=== PATIENT | female | born 1935 | race African-American/Black ===

== ENCOUNTER 2019-04-22 19:13 | Emergency (ER) | payer MEDICARE, OTHER ==
[~2019-04-22] VITALS: Ht 149.9 cm; Wt 81.6 kg
[2019-04-22] MEDS ORDERED: cloNIDine HCL 0.1 MG TAB ONE (20:43)
[2019-04-22] MEDS ORDERED: cloNIDine HCL 0.1 MG TAB PO ONE (20:45)
[2019-04-23 01:36] LABS: Basophils # (auto) 0 uL; Basophils % (auto) 0.4 % (0.0-2.0); Eosinophils # (auto) 0.2 uL; Eosinophils % (auto) 2.3 % (0.0-7.0); Hematocrit 33.3 % (36.0-46.0); Hemoglobin 10.8 g/dL (12.2-16.2); Lymphocytes # (auto) 1.6 uL; Lymphocytes % (auto) 21.1 % (10.0-50.0); Mean Corpuscular Hemoglobin 29.1 pg (28.0-32.0); Mean Corpuscular Hgb Conc. 32.5 g/dL (32.0-36.0); Mean Corpuscular Volume 89.7 fL (80.0-100.0); Monocytes # (auto) 0.7 uL; Monocytes % (auto) 9.1 % (0.0-12.0); Neutrophils # (auto) 4.9 uL; Neutrophils % (auto) 67.1 % (37.0-80.0); Nucleated Red Blood Cells % 0.1 %; Platelet Count (auto) 184 10^3/uL (140-450); Red Blood Cells 3.72 10^6/uL (4.0-5.20); Red Cell Distribution Width 14.4 % (11.8-14.3); White Blood Cell 7.3 10^3/uL (4.4-10.8)
[2019-04-23 01:42] LABS: Urine Bacteria FEW /hpf (None Seen); Urine Blood Negative /uL (Negative); Urine Hyaline Cast FEW /lpf (0 - 2); Urine Mucus FEW (None Seen); Urine Specific Gravity 1.019 (1.001-1.035); Urine WBC 3 /hpf (0 - 5)
[2019-04-23] MEDS ORDERED: ONDANSETRON HCL 4 MG/2 ML VIAL IV ONE (01:45)
[2019-04-23] MEDS ORDERED: MORPHINE SULF INJ 2 MG/ML SYRINGE 1ML IV ONE (01:45)
[2019-04-23 01:52] LABS: INR 0.99 (0.9-1.15); Partial Thromboplastin Time 25.5 sec (23.64-32.05)
[2019-04-23 02:02] LABS: Albumin 3.1 g/dL (3.4-5.0); Calcium 9.3 mg/dL (8.5-10.1)
[2019-04-23 02:04] LABS: BUN/Creatinine Ratio 18.2
[2019-04-23 02:07] LABS: Bilirubin, Total 0.2 mg/dL (0.2-1.0); Total Protein 7.5 g/dL (6.4-8.2)
[2019-04-23 03:58] VITALS: BP 164/61
== END 2019-04-23 03:53 | disposition short-term general hospital (02) ==
LOC: ER 19:16 → EDBD 19:16 → ER 04-23 03:53
DX: S12.000A Unspecified displaced fracture of first cervical vertebra, initial encounter for closed fracture (principal); M48.02 Spinal stenosis, cervical region; E11.9 Type 2 diabetes mellitus without complications; I10 Essential (primary) hypertension; W19.XXXA Unspecified fall, initial encounter; Y93.01 Activity, walking, marching and hiking; Y92.89 Other specified places as the place of occurrence of the external cause; Y99.8 Other external cause status
CPT/HCPCS: 36415; 70450; 72125; 80053; 81001; 82962; 85025; 85610; 85730

== ENCOUNTER 2019-05-23 10:25 | Emergency (ER) | payer MEDICARE ==
[~2019-05-23] VITALS: Ht 152.4 cm; Wt 77.1 kg
[2019-05-23] MEDS ORDERED: cloNIDine HCL 0.1 MG TAB ONE (10:50)
[2019-05-23] MEDS ORDERED: cloNIDine HCL 0.1 MG TAB PO ONE ×2 (11:00)
[2019-05-23 11:45] LABS: Basophils # (auto) 0 uL; Basophils % (auto) 0.8 % (0.0-2.0); Eosinophils # (auto) 0.2 uL; Eosinophils % (auto) 3.6 % (0.0-7.0); Hemoglobin 11.7 g/dL (12.2-16.2); Lymphocytes # (auto) 1.2 uL; Lymphocytes % (auto) 23.6 % (10.0-50.0); Mean Corpuscular Hemoglobin 29.4 pg (28.0-32.0); Mean Corpuscular Hgb Conc. 32.6 g/dL (32.0-36.0); Mean Corpuscular Volume 90.1 fL (80.0-100.0); Monocytes # (auto) 0.4 uL; Monocytes % (auto) 7.8 % (0.0-12.0); Neutrophils # (auto) 3.2 uL; Neutrophils % (auto) 64.2 % (37.0-80.0); Platelet Count (auto) 206 10^3/uL (140-450); Red Cell Distribution Width 14.6 % (11.8-14.3); White Blood Cell 4.9 10^3/uL (4.4-10.8)
[2019-05-23 12:01] LABS: INR 1.01 (0.9-1.15); Partial Thromboplastin Time 26.2 sec (23.64-32.05)
[2019-05-23 12:04] LABS: Albumin 3.6 g/dL (3.4-5.0); Anion Gap 6 (5-15); Blood Urea Nitrogen 17 mg/dL (7-18); Calcium 9.3 mg/dL (8.5-10.1); Carbon Dioxide 25 mmol/L (21-32); Chloride 106 mmol/L (98-107); Glucose 220 mg/dL (74-106); Magnesium 2.1 mg/dL (1.6-2.6); Potassium 4.2 mmol/L (3.5-5.1); Sodium 137 mmol/L (136-145)
[2019-05-23 12:10] LABS: Alanine Aminotransferase 14 U/L (13-56); Alkaline Phosphatase 66 U/L (45-117); Aspartate Aminotransferase 16 U/L (15-37); BUN/Creatinine Ratio 13.4; Bilirubin, Total 0.4 mg/dL (0.2-1.0); GFR African American 51 mL/min; GFR Non-African American 43 mL/min; Total Protein 8.2 g/dL (6.4-8.2)
[2019-05-23 16:12] VITALS: BP 185/65
== END 2019-05-23 16:30 | disposition home or self-care (01) ==
LOC: ER 10:25
DX: S12.000A Unspecified displaced fracture of first cervical vertebra, initial encounter for closed fracture (principal); I16.0 Hypertensive urgency; E11.22 Type 2 diabetes mellitus with diabetic chronic kidney disease; I12.9 Hypertensive chronic kidney disease with stage 1 through stage 4 chronic kidney disease, or unspecified chronic kidney disease; N18.9 Chronic kidney disease, unspecified; W19.XXXA Unspecified fall, initial encounter; Y93.89 Activity, other specified; Y92.89 Other specified places as the place of occurrence of the external cause; Y99.8 Other external cause status
CPT/HCPCS: 36415; 70450; 71045; 72125; 80053; 83735; 83880; 84484; 85025; 85610; 85730; 93005

== ENCOUNTER 2019-06-12 17:49 | Emergency (ER) | payer MEDICARE ==
[~2019-06-12] VITALS: Ht 152.4 cm; Wt 77.1 kg
[2019-06-12 18:13] VITALS: BP 223/89
== END 2019-06-12 21:08 | disposition home or self-care (01) ==
LOC: ER 17:49
DX: S05.11XA Contusion of eyeball and orbital tissues, right eye, initial encounter (principal); E11.9 Type 2 diabetes mellitus without complications; I10 Essential (primary) hypertension; Z95.0 Presence of cardiac pacemaker; W19.XXXA Unspecified fall, initial encounter; Y93.89 Activity, other specified; Y92.89 Other specified places as the place of occurrence of the external cause; Y99.8 Other external cause status
CPT/HCPCS: 70450

== ENCOUNTER 2019-10-27 12:23 | Emergency (ER) | payer MEDICARE ==
[~2019-10-27] VITALS: Ht 152.4 cm; Wt 79.4 kg
[2019-10-27 16:29] VITALS: BP 207/94
[2019-10-27] MEDS ORDERED: cloNIDine 0.2 mg/24hr 7DAY PATCH TD ONE (16:45)
[2019-10-27] MEDS ORDERED: ACETAMINOPHEN/CODEINE#3 (300/30mg) TAB PO ONE (17:00)
[2019-10-27] MEDS ORDERED: cloNIDine HCL 0.1 MG TAB PO ONE ×2 (17:00)
== END 2019-10-27 17:48 | disposition home or self-care (01) ==
LOC: ER 12:23
DX: S86.911A Strain of unspecified muscle(s) and tendon(s) at lower leg level, right leg, initial encounter (principal); I10 Essential (primary) hypertension; E11.9 Type 2 diabetes mellitus without complications; W18.39XA Other fall on same level, initial encounter; Y93.89 Activity, other specified; Y92.89 Other specified places as the place of occurrence of the external cause; Y99.8 Other external cause status